=== PATIENT | female | born 1995 ===

== ENCOUNTER → 2017-12-08 | Outpatient (CLI) | payer OTHER ==
--- NOTE | 2017-12-08 15:48 | RADIOLOGY IMAGING REPORT ---
[place] [facility] [place] Verito Triana : 1995 MR: [id number] V: [id number] EXAM DATE: ORDERING PHYSICIAN: RYLIE HARTMANN TECHNOLOGIST: Location: [facility] Patient: Verito Triana : 1995 Visit/Account:[id number] Date of Sevice: 12/08/2017 US SINGLE ORGAN HISTORY: Right lower quadrant pelvic pain, influenza A, nausea and vomiting, back pain COMPARISON: None. FINDINGS: Multiple sonographic images of the superficial right lower quadrant did not demonstrate an appendix t here is peristalsing bowel noted in the right lower quadrant. No demonstration of a right lower quad rant mass. IMPRESSION: The appendix was not demonstrated in the right lower quadrant. No demonstration of a right lower rocío drant mass. If acute appendicitis remains a strong clinical concern CT of abdomen and pelvis is eduar mmended Report Dictated By: Liudmila George MD at 12/08/2017 3:41 PM Report E-Signed By: Liudmila George MD at 12/08/2017 3:43 PM WSN:[email or web address]
--- NOTE | 2017-12-08 15:51 | RADIOLOGY IMAGING REPORT ---
FACILITY: [facility] [place] PATIENT NAME: Verito Triana : 1995 MR: [id number] V: [id number] EXAM DATE: ORDERING PHYSICIAN: RYLIE HARTMANN TECHNOLOGIST: Location: [facility] Patient: Verito Triana : 1995 Visit/Account:[id number] Date of Sevice: 12/08/2017 PELVIC HISTORY: Nausea, influenza a assessment, diarrhea, right lower quadrant and back pain x3 weeks TECHNIQUE: Transabdominal and transvaginal ultrasound pelvis. COMPARISON: None. FINDINGS: Uterus: ; 7.3 cm length x 3.4 cm AP x 4.8 cm transverse. Myometrium: Unremarkable. Endometrium: Unremarkable; double thickness 4 mm. Cervix: Grossly negative. Ovaries: Right - 3.6 x 1.7 x 1.8 cm Left - 3.4 x 1.7 x 1.5 cm Blood flow is documented in each ovary by duplex Doppler ultrasound. Adnexa: Grossly unremarkable. Free pelvic fluid: Mild. IMPRESSION: Mild amount of free pelvic fluid otherwise unremarkable pelvic ultrasound Report Dictated By: Liudmila George MD at 12/08/2017 3:43 PM Report E-Signed By: Liudmila George MD at 12/08/2017 3:46 PM WSN:[email or web address]
== END ==
LOC: US 02:19
PROVIDERS: ATTEND Emergency Medicine Sports Medicine
DX: R10.2 Pelvic and perineal pain (principal)
CPT/HCPCS: 76705; 76856

== ENCOUNTER → 2017-12-19 | Outpatient (CLI) | payer OTHER ==
[2017-12-19 14:49] LABS: PLATELET COUNT, AUTOMATED 268 K/uL (150-450)
== END ==
LOC: LAB 14:07
PROVIDERS: ATTEND Emergency Medicine Sports Medicine
DX: R19.7 Diarrhea, unspecified (principal)
CPT/HCPCS: 36415; 81001; 82565; 85025; 87324; 87449

== ENCOUNTER → 2018-04-18 | Outpatient (CLI) | payer OTHER | LOC: CT 12:13 | PROVIDERS: ATTEND Nurse Practitioner Family | DX: S09.90XA Unspecified injury of head, initial encounter (principal); S19.9XXA Unspecified injury of neck, initial encounter ==